=== PATIENT | male | born 1950 | race American Indian/Alaskan Native ===

== ENCOUNTER 2019-07-19 13:24 | Observation (INO) | payer MEDICARE ==
[2019-07-16 11:22] LABS: Hematocrit 39.6 % (35.5-45.6); Hemoglobin 13.5 gm/dl (11.8-15.2); Mean Corpuscular HGB Conc 34 % (32-34); Mean Corpuscular Volume 94 fl (84-94); Platelet Count 228 K/mm3 (140-440); Red Blood Count 4.22 M/mm3 (3.65-5.03); Red Cell Distribution Width 13.8 % (13.2-15.2)
[2019-07-16 11:40] LABS: Alanine Aminotransferase 15 units/L (7-56); Albumin 4.1 g/dL (3.9-5); BUN/Creatinine Ratio 8; Blood Urea Nitrogen 8 mg/dL (9-20); Calcium 9.7 mg/dL (8.4-10.2); Hemolysis Index 3
--- NOTE | 2019-07-16 12:16 | Anesthesia Consultation ---
Anesthesia Consult and Med Hx Date of service: 07/19/19 - Airway Anesthetic Teeth Evaluation: Good (implants) ROM Head & Neck: Adequate Mental/Hyoid Distance: Adequate Mallampati Class: Class II Intubation Access Assessment: Probably Good - Pulmonary Exam CTA: Yes - Cardiac Exam Cardiac Exam: RRR - Pre-Operative Health Status ASA Pre-Surgery Classification: ASA2 Proposed Anesthetic Plan: General - Pulmonary Hx Smoking: No Hx Respiratory Symptoms: No Hx Sleep Apnea: No - Cardiovascular System Hx Hypertension: No Hx Heart Attack/AMI: No Hx Valvular Heart Disease: Yes (hx childhood rheumatic fever now s/p AVR 1991) - Central Nervous System CVA: No Hx Back Pain: Yes - Gastrointestinal Hx Gastroesophageal Reflux Disease: No - Endocrine Hx Renal Disease: No Hx Liver Disease: No Hx Insulin Dependent Diabetes: No Hx Non-Insulin Dependent Diabetes: No Hx Thyroid Disease: No - Other Systems Hx Obesity: No - Additional Comments Anesthesia Medical History Comments: No hx anesthetic complications. Cardiology evaluation completed today; records requested.
--- NOTE | 2019-07-19 09:07 | Anesthesia Day of Surgery ---
Anesthesia Day of Surgery - Day of Surgery Patient Examined: Yes Patient H&P Reviewed: Yes Patient is NPO: Yes
--- NOTE | 2019-07-19 12:43 | Short Stay Summary ---
Short Stay Documentation Date of service: 07/19/19 Narrative H&P: 69 yr old male with retention - History H&P: obtained from office Past Medical History: CAD, other (back ap) - Allergies and Medications Current Medications: Allergies No Known Allergies Allergy (Verified 07/15/19 11:48) Home Medications Medication Instructions Recorded Confirmed Last Taken Type Alfuzosin HCl 10 mg PO DAILY 07/14/19 07/19/19 07/16/19 09:00 History Ambien 10 mg PO HS 07/14/19 07/19/19 07/18/19 20:00 History Calcium Citrate/Vitamin D3 2,000 units PO DAILY 07/14/19 07/19/19 07/18/19 09:00 History Dicyclomine 20 mg PO PRN PRN 07/14/19 07/19/19 07/18/19 20:00 History Finasteride 5 mg PO DAILY 07/14/19 07/19/19 07/18/19 20:00 History Magnesium 100 mg PO DAILY 07/14/19 07/19/19 07/16/19 09:00 History Metoclopramide 10 mg PO PRN PRN 07/14/19 07/19/19 07/18/19 20:00 History Myrbetriq 25 mg PO DAILY 07/14/19 07/19/19 07/18/19 20:00 History Potassium Gluconate 550 mg PO PRN PRN 07/14/19 07/19/19 07/17/19 09:00 History [place] Extract 960 mg PO PRN PRN 07/14/19 07/19/19 07/12/19 09:00 History tiZANidine 4 mg PO PRN PRN 07/14/19 07/19/19 07/18/19 20:00 History Ascorbic Acid [Vitamin C] 1,000 mg PO DAILY 07/16/19 07/19/19 06/28/19 09:00 History Cyclobenzaprine [Flexeril] 10 mg PO TID PRN 07/16/19 07/19/19 07/18/19 20:00 History Active Medications Cefazolin Sodium (Ancef/Sterile Water 2 Gm/20 Ml) 2 gm IV PREOP NR Stop: 07/19/19 23:00 Fentanyl (Sublimaze) 50 mcg IV Q5MIN PRN PRN Reason: Pain , Severe (7-10) Stop: 07/19/19 20:00 Lactated Ringer's (Lactated Ringers) 1,000 mls @ 100 mls/hr IV DIRECT YADIEL Stop: 07/19/19 23:59 - Brief post op/procedure progress note Date of procedure: 07/19/19 Pre-op diagnosis: BPH, RETENTION Procedure: CYSTO, GREENLIGHT LASER TUR MEDIAN LOBE Anesthesia: GETA Surgeon: CHARLIE TUBBS Estimated blood loss: minimal Pathology: list (PROSTATE CHIPS) Specimen disposition: to lab Condition: stable - Hospital course Hospital course: BACTRIM & NORCO ON CHART urine clear labs ok home with tenorio - Disposition Condition at discharge: Stable Short Stay Discharge Plan Follow up with: SHEREEN COOK JR, MD [Primary Care Provider] - 7 Days
--- NOTE | 2019-07-19 13:18 | Operative Report ---
PREOPERATIVE DIAGNOSES: Benign prostatic hypertrophy, urinary retention. POSTOPERATIVE DIAGNOSES: Benign prostatic hypertrophy, urinary retention. PROCEDURE: Cystoscopy, bilateral retrograde pyelogram, transurethral resection of median lobe, GreenLight laser ablation of the prostate. SURGEON: Cruz Platt MD ANESTHESIA: General. ESTIMATED BLOOD LOSS: Minimal. FLUIDS: Crystalloid. COMPLICATIONS: No complications. INDICATIONS: This patient is a 69-year-old gentleman with a long history of BPH, initially with nocturia x 8. Urodynamic testing 06/30/2019, peak flow 6 mL/second, bladder capacity of 170 mL also has a history of back pain with radiculopathy, needs a spine evaluation. Discussed options. He and his son agreed to proceed with surgical intervention. DESCRIPTION OF PROCEDURE: The patient was taken to the operative suite, placed in a supine position. After adequate general anesthesia, placed in a dorsal lithotomy position, prepped and draped in a sterile fashion. Pancystourethroscopy was performed with a 22-[place] Storz cystoscope, no urethral abnormalities. Prostate had trilobar obstruction with significant median lobe. In the bladder no tumors or stones. He did have diffuse trabeculation. Bilateral retrograde pyelograms were obtained with an 8-[place] catheter and 8 mL of contrast. No filling defects or obstruction. Next, using a 24-[place] resectoscope and loop with the cutting and coag on 160 and 60, transurethral resection of the prostate was performed of the median lobes. Chips were evacuated out. Next, using a GreenLight laser fiber (MoXy) vaporization up to 100 taylor with the lateral lobes were performed, also coagulation of the lateral lobes and the median lobe was performed. Adequate hemostasis was achieved. The patient tolerated the procedure well. A 22-[place] 3-way catheter to Samaniego's drip was placed. Rectal exam was benign. He was extubated and taken to recovery room. He will be observed overnight and go home on Bactrim and [place]. JOB# [id number] [facility]
[~2019-07-19 13:24] MED LIST: CYCLOBENZAPRINE 10 MG TAB PO PRN; DICYCLOMINE 20 MG PO PRN; HYDROcodone/ACETAMINOPHEN 5-325 MG TAB PO PRN; LACTATED RINGERS 1,000 ML IV SCH; LIDOCAINE MPF (2%) 20 MG/1 ML VIAL 5 ML ONE; MANNITOL/SORBITOL SOLUTION 3,000 ML IRRIG.SOLN IR ONE; METOCLOPRAMIDE 10 MG PO PRN; MORPHINE 2 MG/1 ML INJ IV PRN; NALOXONE 0.4 MG/1 ML INJ IV PRN; NON-FORMULARY EACH (Tizanidine 4 MG) PO PRN; ONDANSETRON 4 MG/2 ML INJ IV PRN; ONDANSETRON 4 MG/2 ML INJ ONE; PHENYLEPHRINE/NS 1,000 MCG/10 ML SYRINGE (OR USE) IV ONE; POTASSIUM GLUCONATE 550 MG PO PRN; SODIUM CHLORIDE 0.9% 1000 ML 1,000 ML ONE; SODIUM CHLORIDE 0.9% IRRIG SOLN 3000 ML IR ONE; ZOLPIDEM 5 MG TAB PO PRN; ceFAZolin/STERILE WATER 2 GM/20 ML SYRINGE IV NR; dexAMETHasone 20 MG/5 ML VIAL ONE; fentaNYL 100 MCG/2 ML INJ IV PRN; fentaNYL 100 MCG/2 ML INJ ONE; propofoL 200 MG/20 ML VIAL IV ONE
--- NOTE | 2019-07-19 13:30 | Fluoroscopy Report ---
FLUOROSCOPY RETROGRADE UROGRAPHY HISTORY: FINDINGS: Fluoroscopy was provided by radiology during retrograde urography by the urologist. There i s normal filling of both renal collecting systems. No filling defect or abnormal dilatation is identi fied. IMPRESSION: Unremarkable lateral retrograde pyelograms Fluoroscopy time: 0.4 minutes Fluoroscopic images: 8 Signer Name: Rich Davidson Jr, MD Signed: 07/19/2019 1:26 PM Workstation Name: [id number]
[2019-07-19] MEDS ORDERED: tiZANidine TAB 4 MG TAB PO PRN (13:51)
[2019-07-19] MEDS ORDERED: DICYCLOMINE 20 MG TAB PO PRN (13:54)
--- NOTE | 2019-07-19 13:58 | Post Anesthesia Evaluation ---
- Post Anesthesia Evaluation Patient Participated: Yes Airway Patent: Yes Stable Respiratory Function: Yes Nausea/Vomiting: No Temp > 96.8F: Yes Pain Manageable: Yes Adequeate Hydration: Yes Anesthesia Complications: No
[2019-07-19] MEDS ORDERED: METOCLOPRAMIDE 10 MG TAB PO PRN (13:59)
--- NOTE | 2019-07-19 15:00 | Consultation ---
History of Present Illness - Reason for Consult Consult date: 07/19/19 Elevated BP Requesting physician: CHARLIE PLATT - History of Present Illness Patient is 69 yo with history of aortic valve replacement, BPH, borderline diabetes. He had cystoscopy and Greenlight laser trans uretheral median lobe prostatectomy done today by Dr. Platt. Hospitalist has been consulted for elevated blood pressure and medical management. His most recent BP is 174/91. He denies history of hypertension.He denies chest pain, denies shortness of breath. Currently only complains of mild pain post operatively. He is not on any medications for aortic valve replacement. Past History Past Medical History: other (BPH, borderline diabetes(not on meds)) Past Surgical History: valve replacement (aortic valve replacement) Social history: single, full code. denies: smoking, alcohol abuse Family history: CAD, diabetes Medications and Allergies Allergies Allergy/AdvReac Type Severity Reaction Status Date / Time No Known Allergies Allergy Verified 07/15/19 11:48 Home Medications Medication Instructions Recorded Confirmed Last Taken Type Alfuzosin HCl 10 mg PO DAILY 07/14/19 07/19/19 07/16/19 09:00 History Ambien 10 mg PO HS 07/14/19 07/19/19 07/18/19 20:00 History Calcium Citrate/Vitamin D3 2,000 units PO DAILY 07/14/19 07/19/19 07/18/19 09:00 History Dicyclomine 20 mg PO PRN PRN 07/14/19 07/19/19 07/18/19 20:00 History Finasteride 5 mg PO DAILY 07/14/19 07/19/19 07/18/19 20:00 History Magnesium 100 mg PO DAILY 07/14/19 07/19/19 07/16/19 09:00 History Metoclopramide 10 mg PO PRN PRN 07/14/19 07/19/19 07/18/19 20:00 History Myrbetriq 25 mg PO DAILY 07/14/19 07/19/19 07/18/19 20:00 History Potassium Gluconate 550 mg PO PRN PRN 07/14/19 07/19/19 07/17/19 09:00 History [place] Extract 960 mg PO PRN PRN 07/14/19 07/19/19 07/12/19 09:00 History tiZANidine 4 mg PO PRN PRN 07/14/19 07/19/19 07/18/19 20:00 History Ascorbic Acid [Vitamin C] 1,000 mg PO DAILY 07/16/19 07/19/19 06/28/19 09:00 History Cyclobenzaprine [Flexeril] 10 mg PO TID PRN 07/16/19 07/19/19 07/18/19 20:00 History Active Meds: Active Medications Acetaminophen/Hydrocodone Bitart (Velpen 5/325) 2 each PO Q4H PRN PRN Reason: Pain, Moderate (4-6) Ascorbic Acid (Vitamin C) 1,000 mg PO QDAY YADIEL Cefazolin Sodium (Ancef/Sterile Water 2 Gm/20 Ml) 2 gm IV PREOP NR Stop: 07/19/19 23:00 Cyclobenzaprine HCl (Flexeril) 10 mg PO TID PRN PRN Reason: Muscle Spasm Dicyclomine HCl (Bentyl) 20 mg PO QID PRN PRN Reason: STOMACH PAIN Fentanyl (Sublimaze) 50 mcg IV Q5MIN PRN PRN Reason: Pain , Severe (7-10) Stop: 07/19/19 20:00 Lactated Ringer's (Lactated Ringers) 1,000 mls @ 100 mls/hr IV DIRECT YADIEL Stop: 07/19/19 23:59 Lactated Ringer's (Lactated Ringers) 1,000 mls @ 100 mls/hr IV DIRECT YADIEL Cefazolin Sodium (Ancef/Ns 1 Gm/50 Ml) 1 gm in 50 mls @ 100 mls/hr IV Q8H YADIEL; Protocol Stop: 07/20/19 02:29 Metoclopramide HCl (Reglan) 10 mg PO ACHS PRN PRN Reason: GASTROPARESIS Morphine Sulfate (Morphine) 2 mg IV Q4H PRN PRN Reason: Pain, Moderate (4-6) Naloxone HCl (Naloxone) 0.1 mg IV Q2MIN PRN PRN Reason: Res Rate </= 8 or 02 SAT < 92% Ondansetron HCl (Zofran) 4 mg IV Q8H PRN PRN Reason: Nausea And Vomiting Zolpidem Tartrate (Ambien) 5 mg PO QHS PRN PRN Reason: Sleep Review of Systems All systems: negative (No fever, no headache, no abd pain, no cough. All other systems reviewed and are negative) Exam - Physical Exam Narrative exam: GEN: Not in acute distress, lying in bed HEENT: Normocephalic, atraumatic, Neck: supple, No JVD Lungs: Clear to auscultation bilaterally, no crackles heart;S1 and S2 reg, no murmurs, rubs or gallop Abd:soft, non tender, non distended, normal bowel sounds, Ext: No edema, no clubbing, no cyanosis, Neuro: Awake,alert,oriented X3 , no focal signs, - Constitutional Vitals: Temp Pulse Resp BP Pulse Ox 98.3 F 72 19 174/91 100 07/19/19 14:00 07/19/19 14:00 07/19/19 14:00 07/19/19 14:00 07/19/19 14:00 Results - Labs CBC & Chem 7: 07/16/19 10:45 07/16/19 10:15 Labs: Abnormal lab results 07/19/19 Range/Units 09:41 POC Glucose 120 H (70-105) Assessment and Plan BPH s/p surgery Admitted to surg Unit Urology Attending Elevated BP He denies history of Hypertension Elevated BP may be due to pain after surg Will give Hydralazine 10mg iv Q 6 prn SBP>160 or DBP>110 Aortic valve replacement from rheumatic fever, in 1991 Stable Not on any medications Has appt to follow up this month Borderline diabetes mellitus Diabetic diet accucheck qachs Thanks Dr. Platt for consulting us. Will follow.
[2019-07-19] MEDS ORDERED: hydrALAZINE 20 MG/1 ML INJ IV PRN (15:09)
[2019-07-19] MEDS ORDERED: ZOLPIDEM 5 MG TAB PO PRN (15:14)
[2019-07-19] MEDS ORDERED: SODIUM CHLORIDE IRRI 1000 ML 1,000 ML IR ONE (17:10)
[2019-07-19] MEDS: ceFAZolin/NS 1 GM/50 ML 1 GM/50 ML BAG IV SCH ×2 (17:42→20:20)
[2019-07-19] MEDS ORDERED: NON-FORMULARY EACH (Ambien 10 MG) PO SCH (22:00)
[2019-07-19] MEDS ORDERED: ZOLPIDEM 5 MG TAB PO SCH (22:00)
[2019-07-20] MEDS: SODIUM CHLORIDE 0.9% IRRIG SOLN 2000 ML IR SCH ×5 (03:01→09:00)
[2019-07-20] MEDS: ceFAZolin/NS 1 GM/50 ML 1 GM/50 ML BAG IV SCH (03:09)
[2019-07-20 04:47] LABS: Basophils % (Auto) 0.2 % (0.0-1.8); Eosinophils # (Auto) 0.1 K/mm3 (0.0-0.4); Eosinophils % (Auto) 0.6 % (0.0-4.3); Hematocrit 38.2 % (35.5-45.6); Lymphocytes # (Auto) 1.5 K/mm3 (1.2-5.4); Lymphocytes % (Auto) 14.1 % (13.4-35.0); Mean Corpuscular HGB Conc 34 % (32-34); Mean Corpuscular Volume 94 fl (84-94); Monocytes # (Auto) 0.8 K/mm3 (0.0-0.8); Monocytes % (Auto) 7.3 % (0.0-7.3); Platelet Count 230 K/mm3 (140-440); Red Blood Count 4.05 M/mm3 (3.65-5.03); Red Cell Distribution Width 13.5 % (13.2-15.2)
[2019-07-20 05:12] LABS: BUN/Creatinine Ratio 8; Blood Urea Nitrogen 7 mg/dL (9-20); Calcium 9.1 mg/dL (8.4-10.2); Hemolysis Index 4
[2019-07-20 08:37] VITALS: BP 148/70
[2019-07-20] MEDS ORDERED: ASCORBIC ACID 500 MG TAB PO SCH (10:00)
[2019-07-20] MEDS ORDERED: MAGNESIUM 100 MG PO SCH (10:00)
[2019-07-20] MEDS ORDERED: NON-FORMULARY EACH (Ascorbic Acid [Vitamin C] 1,000 MG) PO SCH (10:00)
--- NOTE | 2019-07-20 11:37 | Progress Note ---
Assessment and Plan Assessment and plan: BPH s/p surgery Urology following Elevated BP pain control Will give Hydralazine 10mg iv Q 6 prn SBP>160 or DBP>110 Aortic valve replacement from rheumatic fever, in 1991 Borderline diabetes mellitus Diabetic diet accucheck qachs History Interval history: No new issues Hospitalist Physical - Constitutional Vitals: Temp Pulse Resp BP Pulse Ox 98.1 F 76 18 148/70 100 07/20/19 08:08 07/20/19 08:08 07/20/19 08:08 07/20/19 08:08 07/20/19 08:08 General appearance: Present: no acute distress, well-nourished - EENT Eyes: Present: PERRL, EOM intact ENT: hearing intact, clear oral mucosa, dentition normal - Neck Neck: Present: supple, normal ROM - Respiratory Respiratory effort: normal Respiratory: bilateral: CTA - Cardiovascular Rhythm: regular Heart Sounds: Present: S1 & S2. Absent: gallop, rub - Extremities Extremities: no ischemia, No edema, Full ROM - Abdominal General gastrointestinal: soft, non-tender, non-distended, normal bowel sounds - Integumentary Integumentary: Present: clear, warm, dry - Neurologic Neurologic: CNII-XII intact, moves all extremities Results - Labs CBC & Chem 7: 07/20/19 04:30 07/20/19 04:30 Labs: Laboratory Last Values WBC 10.9 K/mm3 (4.5-11.0) 07/20/19 04:30 RBC 4.05 M/mm3 (3.65-5.03) 07/20/19 04:30 Hgb 13.0 gm/dl (11.8-15.2) 07/20/19 04:30 Hct 38.2 % (35.5-45.6) 07/20/19 04:30 MCV 94 fl (84-94) 07/20/19 04:30 MCH 32 pg (28-32) 07/20/19 04:30 MCHC 34 % (32-34) 07/20/19 04:30 RDW 13.5 % (13.2-15.2) 07/20/19 04:30 Plt Count 230 K/mm3 (140-440) 07/20/19 04:30 Lymph % (Auto) 14.1 % (13.4-35.0) 07/20/19 04:30 [place] % (Auto) 7.3 % (0.0-7.3) 07/20/19 04:30 Eos % (Auto) 0.6 % (0.0-4.3) 07/20/19 04:30 Baso % (Auto) 0.2 % (0.0-1.8) 07/20/19 04:30 Lymph # 1.5 K/mm3 (1.2-5.4) 07/20/19 04:30 [place] # 0.8 K/mm3 (0.0-0.8) 07/20/19 04:30 Eos # 0.1 K/mm3 (0.0-0.4) 07/20/19 04:30 Baso # 0.0 K/mm3 (0.0-0.1) 07/20/19 04:30 Seg Neutrophils % 77.8 % (40.0-70.0) H 07/20/19 04:30 Seg Neutrophils # 8.5 K/mm3 (1.8-7.7) H 07/20/19 04:30 Sodium 140 mmol/L (137-145) 07/20/19 04:30 Potassium 4.8 mmol/L (3.6-5.0) 07/20/19 04:30 Chloride 103.6 mmol/L (98-107) 07/20/19 04:30 Carbon Dioxide 27 mmol/L (22-30) 07/20/19 04:30 Anion Gap 14 mmol/L 07/20/19 04:30 BUN 7 mg/dL (9-20) L 07/20/19 04:30 Creatinine 0.9 mg/dL (0.8-1.5) 07/20/19 04:30 Estimated GFR > 60 ml/min 07/20/19 04:30 BUN/Creatinine Ratio 8 % 07/20/19 04:30 Glucose 113 mg/dL (75-100) H 07/20/19 04:30 POC Glucose 99 (70-105) 07/19/19 23:02 Calcium 9.1 mg/dL (8.4-10.2) 07/20/19 04:30 Total Bilirubin 0.30 mg/dL (0.1-1.2) 07/16/19 10:15 AST 15 units/L (5-40) 07/16/19 10:15 ALT 15 units/L (7-56) 07/16/19 10:15 Alkaline Phosphatase 80 units/L (35-129) 07/16/19 10:15 Total Protein 7.0 g/dL (6.3-8.2) 07/16/19 10:15 Albumin 4.1 g/dL (3.9-5) 07/16/19 10:15 Albumin/Globulin Ratio 1.4 % 07/16/19 10:15 Coronavirus (PCR) Negative (Negative) 07/16/19 10:30 Blood Type O POSITIVE 07/19/19 09:15 Antibody Screen Negative 07/19/19 09:15 [place]/IV: Voiding Method Indwelling Catheter IV Catheter Type [Left Forearm Peripheral IV ] Active Medications - Current Medications Current Medications: Generic Name Dose Route Start Last Admin Trade Name Freq PRN Reason Stop Dose Admin Acetaminophen/Hydrocodone Bitart 2 each 07/19/19 12:49 07/20/19 03:02 [place] 5/325 PO 2 each Q4H PRN Administration Pain, Moderate (4-6) Ascorbic Acid 1,000 mg 07/20/19 10:00 07/20/19 09:09 Vitamin C PO 1,000 mg QDAY YADIEL Administration Cyclobenzaprine HCl 10 mg 07/19/19 12:53 Flexeril PO TID PRN Muscle Spasm Dicyclomine HCl 20 mg 07/19/19 13:54 Bentyl PO QID PRN STOMACH PAIN Hydralazine HCl 10 mg 07/19/19 15:09 Apresoline IV Q4HR PRN SBP>160 or DBP>110 Lactated Ringer's 1,000 mls @ 100 mls/hr 07/19/19 13:00 07/20/19 03:10 Lactated Ringers IV 100 mls/hr DIRECT YADIEL Administration Metoclopramide HCl 10 mg 07/19/19 13:59 07/20/19 03:03 Reglan PO 10 mg ACHS PRN Administration GASTROPARESIS Morphine Sulfate 2 mg 07/19/19 12:49 07/19/19 22:07 Morphine IV 2 mg Q4H PRN Administration Pain, Moderate (4-6) Naloxone HCl 0.1 mg 07/19/19 12:49 Naloxone IV Q2MIN PRN Res Rate </= 8 or 02 SAT < 92% Ondansetron HCl 4 mg 07/19/19 12:49 07/19/19 22:07 Zofran IV 4 mg Q8H PRN Administration Nausea And Vomiting Sodium Chloride 2,000 ml 07/19/19 15:07 07/20/19 05:56 Nacl 0.9% IR 2,000 ml DIRECT YADIEL Administration Zolpidem Tartrate 10 mg 07/19/19 22:00 07/19/19 22:03 Ambien PO 10 mg QHS YADIEL Administration
== END 2019-07-20 11:15 | disposition home health service (06) ==
LOC: OR 13:24 → 3B-SURG 13:25
PROVIDERS: ADMIT Urology; ATTEND Urology
DX: Z03.818 Encounter for observation for suspected exposure to other biological agents ruled out (principal); N40.1 Benign prostatic hyperplasia with lower urinary tract symptoms; R03.0 Elevated blood-pressure reading, without diagnosis of hypertension; M54.5 Low back pain; E11.9 Type 2 diabetes mellitus without complications; Z71.3 Dietary counseling and surveillance; Z95.4 Presence of other heart-valve replacement; Z79.899 Other long term (current) drug therapy
CPT/HCPCS: 36415; 52005; 52648; 74420; 80048; 80053; 82962; 85025; 85027; 86850; 86900; 86901; 88305; 96365; 96366; 96375; A4217; G0378; J0690; J1100; J2270; J2370; J2405; J2704; J3010; J7030; J7120; Q9967; U0003